=== PATIENT | male | born 1990 | race Caucasian/White ===

== ENCOUNTER 2021-02-08 11:49 | Emergency (ER) | payer MEDICAID ==
[~2021-02-08] VITALS: Ht 188 cm; Wt 74.2 kg
--- NOTE | 2021-02-08 12:03 | NUR ---
NAX1
--- NOTE | 2021-02-08 15:37 | NUR ---
producer: pt from lobby to room 23
[2021-02-08 16:03] VITALS: BP 130/89
--- NOTE | 2021-02-08 16:04 | NUR ---
Patient given discharge instructions and they have confirmed that they understand the instructions. Patient ambulatory with steady gait. No quesitons at this time.
== END 2021-02-08 16:13 | disposition home or self-care (01) ==
LOC: ED 15:53
DX: L03.116 Cellulitis of left lower limb (principal); R00.0 Tachycardia, unspecified; F17.210 Nicotine dependence, cigarettes, uncomplicated
CPT/HCPCS: 99283

== ENCOUNTER 2021-02-10 20:04 | Emergency (ER) | payer MEDICAID ==
[~2021-02-10] VITALS: Ht 188 cm; Wt 76.8 kg
--- NOTE | 2021-02-10 20:27 | NUR ---
PT CAME INTO ED TODAY FOR A NON HEALING WOUND TO HIS LEFT KNEE, ABOUT A QUARTER SIZE, AND A QUARTER INCH DEEP. PT STATES "I THINK ITS A MRSA WOUND" PT DENEIS ANY PREVIOUS HOPSITALIZATIONS FOR NON HEALING WOUNDS. STATES ITS BEEN THERE [id number]. NO OTHER SYMPTOMS. NAD, CMS INTACT, NO WEAKNESS AT THIS TIME. WCTM PT PLACED ON SPO2/BP MONITORING.
[2021-02-10 21:00] LABS: MEAN CORPUSCULAR HEMOGLOBIN 30.5 pg (27.5-34.5); MEAN CORPUSCULAR HGB CONC 34.2 g/dL (33.2-36.2); RED BLOOD COUNT 4.21 x10^6/uL (4.38-5.82)
[2021-02-10] MEDS ORDERED: DIPH,PERTUSS(ACELL),TET VAC/PF 0.5 ML IM-VACC ONE ×2 (21:00→21:18)
[2021-02-10 21:01] LABS: BASOPHILS % (AUTO) 1 % (0-1); EOSINOPHILS % (AUTO) 1 % (1-7); LYMPHOCYTES % (AUTO) 23 % (22-44); MEAN PLATELET VOLUME 8.2 fL (7.4-10.4); MONOCYTES % (AUTO) 9 % (2-9); NEUTROPHILS % (AUTO) 66 % (42-75); PLATELET COUNT 232 x10^3/uL (130-400)
[2021-02-10 21:04] LABS: MD NO
[2021-02-10 21:05] LABS: ANION GAP 3 mmol/L (5-15); CALCIUM 8.6 mg/dL (8.5-10.1); CHLORIDE 106 mmol/L (98-107)
--- NOTE | 2021-02-10 21:24 | NUR ---
PT VACCINE (TDAP) GIVEN, PT RESTING COMFORTABLY ON GURNEY, DENIES NEEDS AT THIS TIME
[2021-02-10] MEDS ORDERED: NEOSPORIN OINT. PKT 1 PACKET ONE (22:10)
[2021-02-10 22:30] VITALS: BP 129/79
[2021-02-10] MEDS ORDERED: MUPIROCIN OINT 2%, 15GM TP ONE (22:30)
== END 2021-02-10 22:39 | disposition home or self-care (01) ==
LOC: ED 20:34
DX: M25.562 Pain in left knee (principal); L97.829 Non-pressure chronic ulcer of other part of left lower leg with unspecified severity; F17.210 Nicotine dependence, cigarettes, uncomplicated
CPT/HCPCS: 36415; 80048; 85025; 90471; 90715; 99284; 99406